=== PATIENT | male | born 1965 | race American Indian/Alaskan Native ===

== ENCOUNTER 2021-10-21 01:47 | Day surgery (SDC) | payer OTHER, SELFPAY ==
[2021-10-18 15:02] VITALS: BMI 27.9
--- NOTE | 2021-10-19 12:29 | PM.HPGS ---
History of Present Illness History of Present Illness Consent: Risks, benefits, and alternatives have been discussed and questions answered. Patient agrees to proceed with procedure. Chief complaint: positive cologuard Narrative: Abelardo Brody is a 56 year old male Referred for colon cancer screening. a recent Cologuard test was positive Review of Systems Review of Systems: All systems reviewed & are unremarkable except as noted in HPI and below PMFSH Past Medical History Medical History Diabetes Hyperlipidemia Social History Social History Smoking packs per day: 0.25 Smoking cigarettes per day: 5.0 Smoking status: Former smoker Tobacco type: cigarettes Alcohol intake: current Alcohol use details: 1-2 times per year Substance use: never Substance use type: does not use Living arrangements: with family Spiritual care concerns: No Meds Home Medications and Allergies Home Medications Medication Instructions Recorded Confirmed Type atorvastatin 80 mg tablet 80 mg PO DAILY 10/18/21 10/21/21 History dulaglutide 1.5 mg/0.5 mL 1.5 mg subcut WEEKLY 10/18/21 10/21/21 History subcutaneous pen injector (Trulicity) empagliflozin 25 mg tablet 25 mg PO DAILY 10/18/21 10/21/21 History (Jardiance) ezetimibe 10 mg tablet 10 mg PO DAILY 10/18/21 10/21/21 History fenofibrate 160 mg tablet 160 mg PO DAILY 10/18/21 10/21/21 History gabapentin 600 mg tablet 600 mg PO TID 10/18/21 10/21/21 History lisinopril 5 mg tablet 5 mg PO DAILY 10/18/21 10/21/21 History metformin 500 mg tablet,extended 1,000 mg PO BID 10/18/21 10/21/21 History release 24 hr Allergies Allergy/AdvReac Type Severity Reaction Status Date / Time Penicillins Allergy Unknown Other Verified 10/21/21 12:27 Exam Resp: Auscultation: clear to auscultation bilaterally Cardio: Rate: regular rate Rhythm: regular rhythm GI: GI Palp: Yes Soft to palpation and No Tenderness to palpation present (GI) Assessment and Plan Assessment and plan (1) Colon cancer screening: Code(s): Z12.11 - Encounter for screening for malignant neoplasm of colon Status: Acute Assessment and Plan: Colonoscopy with possible biopsy or polypectomy or cautery or injection of substances.
[2021-10-21 12:28] VITALS: BP 132/82; PULSE 78; RESP 20; TEMP 36.5; O2SAT 99; BMI 27.4
[2021-10-21] MEDS: LACTATED RINGERS 1,000 ML 150 ML IV CONT (12:31)
--- NOTE | 2021-10-21 12:32 | WPDANESEPPF ---
Anes - Initial Pre Proc Eval Procedure: Operation Date: 10/21/21 13:45 Proposed Procedures p Colonoscopy - Nicholas Corrales MD Date/Time: 10/21/21 12:32 Surgeon: Nicholas Corrales MD Pre Op Diagnosis: positive cologuard Patient Data Age: 56 Gender: M Height: 1.8 m Weight: 89.4 kg Last Vital Signs Temp 36.5 C 10/21/21 12:28 Pulse 78 10/21/21 12:28 Resp 20 10/21/21 12:28 BP 132/82 10/21/21 12:28 Pulse Ox 99 10/21/21 12:28 O2 Del Method Room Air 10/21/21 12:28 Allergies Allergy/AdvReac Type Severity Reaction Status Date / Time Penicillins Allergy Unknown Other Verified 10/21/21 12:27 Home Medications Medication Instructions Recorded Confirmed Type atorvastatin 80 mg tablet 80 mg PO DAILY 10/18/21 10/21/21 History dulaglutide 1.5 mg/0.5 mL 1.5 mg subcut WEEKLY 10/18/21 10/21/21 History subcutaneous pen injector (Trulicity) empagliflozin 25 mg tablet 25 mg PO DAILY 10/18/21 10/21/21 History (Jardiance) ezetimibe 10 mg tablet 10 mg PO DAILY 10/18/21 10/21/21 History fenofibrate 160 mg tablet 160 mg PO DAILY 10/18/21 10/21/21 History gabapentin 600 mg tablet 600 mg PO TID 10/18/21 10/21/21 History lisinopril 5 mg tablet 5 mg PO DAILY 10/18/21 10/21/21 History metformin 500 mg tablet,extended 1,000 mg PO BID 10/18/21 10/21/21 History release 24 hr Patient hx anesthesia problems: none Family hx anesthesia problems: none Results Review: All pre-operative results and documents have been reviewed as part of the pre-operative evaluation. [facility] Past Medical History Medical History Diabetes Hyperlipidemia Social History Social History Smoking packs per day: 0.25 Smoking cigarettes per day: 5.0 Smoking status: Former smoker Tobacco type: cigarettes Alcohol intake: current Alcohol use details: 1-2 times per year Substance use: never Substance use type: does not use Living arrangements: with family Spiritual care concerns: No Anes - Eval Final PreProcedure Day of Procedure 10/21/21 12:32 Patient weight: overweight Heart: regular rate and rhythm Lungs: clear to auscultation Airway: Mallampati scale class II Neurological: alert and oriented Last oral intake: >/= 8 hours ASA classification: II Emergent: no Anesthetic plan: proceed Anesthesia type and monitoring: general GIVS and standard monitoring Results Review: All pre-operative results and documents have been reviewed as part of the pre-operative evaluation. Informed Consent: The patient's anesthetic plan and its attendant risks and benefits were discussed with the patient/family/POA. Questions were solicited and answers provided to the satisfaction of the patient/family/POA.
[2021-10-21 12:46] LABS: Glucose Point of Care 124 mg/dl (65-105)
[2021-10-21 13:45] VITALS: BP 95/52; PULSE 73; RESP 13; O2SAT 97
[2021-10-21 13:55] VITALS: BP 109/82; PULSE 78; RESP 18; O2SAT 98
[2021-10-21 14:05] VITALS: BP 122/86; PULSE 81; RESP 17; O2SAT 99
== END 2021-10-21 14:25 | disposition home or self-care (01) ==
PROVIDERS: PCP Family Medicine; Visit Provider Internal Medicine Gastroenterology
PROC: 0DJD8ZZ Inspection of Lower Intestinal Tract, Via Natural or Artificial Opening Endoscopic (ICD-10-PCS; CPT 45378; principal; 2021-10-21 13:45)
DX: Z12.11 Encounter for screening for malignant neoplasm of colon (principal); D12.8 Benign neoplasm of rectum; K63.5 Polyp of colon; K57.30 Diverticulosis of large intestine without perforation or abscess without bleeding; R19.5 Other fecal abnormalities; Z79.84 Long term (current) use of oral hypoglycemic drugs; E11.9 Type 2 diabetes mellitus without complications; E78.5 Hyperlipidemia, unspecified; Z87.891 Personal history of nicotine dependence
CPT/HCPCS: 45385; 45381; 45380; 82948; 88305; J2704; J7120